=== PATIENT | male | born 1970 | race African-American/Black ===

== ENCOUNTER 2016-08-20 08:10 | Inpatient (IN) | payer MEDICAID ==
[2016-08-20] VITALS (21 sets, daily range): BP systolic 118–181; BP diastolic 72–110
[~2016-08-20] VITALS: Ht 185.4 cm; Wt 59.0 kg
[2016-08-20 09:06] LABS: BASOPHILS % 0.5 % (0.0-2.0); EOSINOPHILS % 0.4 % (0.0-5.0); HEMATOCRIT. 37.9 % (42.0-52.0); LYMPHOCYTES % 8.3 % (20.0-50.0); MEAN CORPUSCULAR HEMOGLOBIN 34.9 pg (28.0-32.0); MEAN CORPUSCULAR VOLUME 101.2 fL (80.0-94.0); MEAN PLATELET VOLUME 8.1 fl (7.4-10.4); MONOCYTES % 3.5 % (2.0-8.0); NEUTROPHILS % 87.3 % (40.0-76.0); PLATELET 166 x1000/uL (130-400); RED BLOOD CELL COUNT 3.74 mill/uL (4.7-6.1); RED CELL DISTRIBUTION WIDTH 14.9 % (11.6-14.6)
[2016-08-20] MEDS ORDERED: LORAZEPAM 2MG/ML CPJ IV ONE ×4 (09:15→16:45)
[2016-08-20 09:19] LABS: AMMONIA 33 uMol/L (<32)
[2016-08-20 09:23] LABS: CARBON DIOXIDE 28 mEq/L (21-32); CHLORIDE 106 mEq/L (98-107); CREATINE KINASE 494 IU/L (39-308); ETHANOL BLOOD < 10 mg/dL
[2016-08-20 09:25] LABS: CARBAMAZEPINE < 0.5 ug/mL (4-12); PHENOBARBITAL < 2.1 ug/mL (15.0-40.0); PHENYTOIN < 0.4 ug/mL (10-20); VALPROIC ACID < 3.0 ug/mL (50-100)
[2016-08-20 09:53] LABS: CLARITY URINE CLEAR (CLEAR); COLOR URINE YELLOW (YELLOW); GLUCOSE URINE 3+ (NEGATIVE); KETONES URINE NEGATIVE (NEGATIVE); LEUKOCYTE ESTERASE URINE NEGATIVE (NEGATIVE); NITRITE URINE NEGATIVE (NEGATIVE); OCCULT BLOOD URINE 3+ (NEGATIVE); PROTEIN URINE 2+ (NEGATIVE); SPECIFIC GRAVITY URINE 1.021 (1.005-1.030); UROBILINOGEN URINE 0.2 E.U./dL (0.2-1.0)
[2016-08-20 10:15] LABS: *AMPHETAMINES SCREEN URINE PRESUMTIVE POSITIVE (NEGATIVE); *BARBITURATES SCREEN URINE NEGATIVE (NEGATIVE); *BENZODIAZEPINES SCREEN URINE PRESUMTIVE POSITIVE (NEGATIVE); *COCAINE SCREEN URINE NEGATIVE (NEGATIVE); CANNABINOID URINE SCREEN PRESUMTIVE POSITIVE (NEGATIVE); METHADONE URINE SCREEN NEGATIVE (NEGATIVE); OPIATES URINE SCREEN NEGATIVE (NEGATIVE); PHENCYCLIDINE URINE SCREEN PRESUMTIVE POSITIVE (NEGATIVE)
[2016-08-20] MEDS ORDERED: LEVETIRACETAM 1,000 MG in SODIUM CHLORIDE 0.9% 100 ML IV ONE ×2 (14:00→14:15)
[2016-08-20] MEDS ORDERED: LEVETIRACETAM 1,000 MG in SODIUM CHLORIDE 0.9% 100 ML IV NR (14:15)
[2016-08-20] MEDS ORDERED: SODIUM CHLORIDE 0.9% 1,000 ML IV ONE (14:19)
[2016-08-20] MEDS ORDERED: ACETAMINOPHEN 325MG TABLET PO ONE (16:00)
[2016-08-20] MEDS ORDERED: HYDRALAZINE 20MG/ML VIAL IV ONE (17:00)
[2016-08-20] MEDS ORDERED: DEXT 5%/0.45% NACL 1000ML 1,000 ML IV SCH (17:42)
[2016-08-20] MEDS ORDERED: ACETAMINOPHEN 650MG SUPP PR PRN (17:45)
[2016-08-20] MEDS ORDERED: DIPHENHYDRAMINE 50MG/ML VIAL IV PRN (17:45)
[2016-08-20] MEDS ORDERED: ONDANSETRON HCL 4MG/2ML VIAL IV PRN (17:45)
[2016-08-20] MEDS ORDERED: NICARDIPINE 20MG/200ML PREMIX 200 ML IV PRN (17:45)
[2016-08-20] MEDS ORDERED: NICARDIPINE 100 MG in SODIUM CHLORIDE 0.9% 60 ML IV PRN ×2 (17:45→18:30)
[2016-08-20] MEDS ORDERED: IPRATROPIUM/ALBUTEROL 0.5-3(2.5)MG/3ML NEB INH PRN (17:45)
[2016-08-20] MEDS ORDERED: DEXT 5%/LACTATED RINGERS 1,000 ML IV SCH ×2 (17:52→18:20)
[2016-08-20] MEDS ORDERED: LEVETIRACETAM 500MG PREMIX 100 ML IV SCH (18:00)
[2016-08-20] MEDS: PANTOPRAZOLE SODIUM 40 MG/VIAL IV SCH (21:00)
[2016-08-21] VITALS (62 sets, daily range): BP systolic 106–160; BP diastolic 61–107
[2016-08-21] MEDS ORDERED: LEVETIRACETAM 500MG in SODIUM CHLORIDE 0.9% 100ML IV SCH (03:00)
[2016-08-21] MEDS ORDERED: LORAZEPAM 2MG/ML CPJ IV PRN (08:15)
[2016-08-21] MEDS ORDERED: LEVETIRACETAM 500MG PREMIX 100 ML IV SCH (09:00)
[2016-08-21] MEDS: CEFEPIME 1,000 MG in DEXTROSE 5% WATER 50 ML IV SCH ×2 (10:22→23:01)
[2016-08-21] MEDS ORDERED: NICOTINE 21MG PATCH TD NR (11:00)
[2016-08-21] MEDS ORDERED: FOLIC ACID 1 MG, THIAMINE HCL 100 MG, MVI, ADULT NO.1 10 ML in DEXTROSE 5% WATER 1,000 ML IV PRN ×4 (11:00)
[2016-08-21] MEDS: LEVETIRACETAM 500MG in SODIUM CHLORIDE 0.9% 100ML IV SCH (15:00)
[2016-08-21] MEDS ORDERED: DEXT 5%/LACTATED RINGERS 1,000 ML IV SCH (19:45)
[2016-08-21] MEDS: PANTOPRAZOLE SODIUM 40 MG/VIAL IV SCH (20:45)
[2016-08-22] VITALS (35 sets, daily range): BP systolic 107–156; BP diastolic 36–109
[2016-08-22] MEDS: LEVETIRACETAM 500MG in SODIUM CHLORIDE 0.9% 100ML IV SCH ×2 (03:01→15:50)
[2016-08-22 05:24] LABS: BASOPHILS % 0.8 % (0.0-2.0); EOSINOPHILS % 2.4 % (0.0-5.0); HEMATOCRIT. 38.3 % (42.0-52.0); HEMOGLOBIN. 13.3 g/dL (14.0-18.0); MEAN CORPUSCULAR HEMOGLOBIN 35.2 pg (28.0-32.0); MEAN CORPUSCULAR VOLUME 100.9 fL (80.0-94.0); MONOCYTES % 9.8 % (2.0-8.0); PLATELET 147 x1000/uL (130-400); RED BLOOD CELL COUNT 3.79 mill/uL (4.7-6.1); RED CELL DISTRIBUTION WIDTH 14.6 % (11.6-14.6)
[2016-08-22 05:40] LABS: CARBON DIOXIDE 28 mEq/L (21-32); CHLORIDE 102 mEq/L (98-107)
[2016-08-22] MEDS: NICOTINE 21MG PATCH TD SCH (10:08)
[2016-08-22] MEDS: LISINOPRIL 10MG TABLET PO SCH (10:09)
[2016-08-22] MEDS: CEFEPIME 1,000 MG in DEXTROSE 5% WATER 50 ML IV SCH ×2 (10:11→22:44)
[2016-08-22] MEDS: PANTOPRAZOLE SODIUM 40 MG/VIAL IV SCH (20:40)
[2016-08-23] VITALS: BP 128/87
[2016-08-23] MEDS: LEVETIRACETAM 500MG in SODIUM CHLORIDE 0.9% 100ML IV SCH (02:29)
[2016-08-23 04:00] VITALS: BP 149/84
[2016-08-23 08:00] VITALS: BP 125/87
[2016-08-23] MEDS ORDERED: FOLIC ACID 1MG TABLET PO SCH (09:00)
[2016-08-23] MEDS ORDERED: THIAMINE HCL 100MG TABLET PO SCH (09:00)
[2016-08-23] MEDS ORDERED: MULTIVITAMINS,THER W-MINERALS TABLET PO SCH (09:00)
[2016-08-23] MEDS: LISINOPRIL 10MG TABLET PO SCH (10:20)
[2016-08-23] MEDS: NICOTINE 21MG PATCH TD SCH (10:20)
[2016-08-23 12:00] VITALS: BP 130/99
[2016-08-23] MEDS: CEFEPIME 1,000 MG in DEXTROSE 5% WATER 50 ML IV SCH (12:02)
[2016-08-23 14:42] VITALS: BP 130/99
[2016-08-24] MEDS ORDERED: FAMOTIDINE 20MG TABLET PO SCH (09:00)
== END 2016-08-23 15:07 | disposition home or self-care (01) | DRG 55 ==
LOC: EDBD 08:28 → ER 08:28 → EDBEDREQTM 16:52 → EDBEDREQSVC 16:52 → EDBEDREQ 16:52 → MICUSO 17:02 → EDBEDREQ 17:03 → EDBEDREQTM 17:03 → ENRESERV 17:15 → 8WST 08-22 16:34
PROVIDERS: ADMIT Internal Medicine; ATTEND Internal Medicine
DX: S06.5X9A Traumatic subdural hemorrhage with loss of consciousness of unspecified duration, initial encounter (principal); E43 Unspecified severe protein-calorie malnutrition; G93.40 Encephalopathy, unspecified; I10 Essential (primary) hypertension; W19.XXXA Unspecified fall, initial encounter; F10.10 Alcohol abuse, uncomplicated; D64.9 Anemia, unspecified; F12.10 Cannabis abuse, uncomplicated; F15.10 Other stimulant abuse, uncomplicated; F16.10 Hallucinogen abuse, uncomplicated; F17.210 Nicotine dependence, cigarettes, uncomplicated; G40.909 Epilepsy, unspecified, not intractable, without status epilepticus; Y93.89 Activity, other specified; Y92.89 Other specified places as the place of occurrence of the external cause; Y99.8 Other external cause status; Z68.1 Body mass index [BMI] 19.9 or less, adult; Z91.14 Patient's other noncompliance with medication regimen
CPT/HCPCS: 36415; 70450; 71010; 80048; 80053; 80156; 80165; 80184; 80185; 80305; 81001; 82140; 82550; 83036; 84484; 85025; 93005; 96365; 96375; 96376; 97112; 97116; 97163; 97166; 97530; 99285; C9113; G0482; J0360; J0692; J1953; J2060; J3490; J7030; J7040; J7050; J7060